=== PATIENT | male | born 1995 | race Caucasian/White ===

== ENCOUNTER 2017-04-15 16:42 | Emergency (ER) | payer BC ==
[~2017-04-15] VITALS: Ht 170.2 cm; Wt 81.0 kg
[2017-04-15 16:46] VITALS: TEMP 37.3; Ht 170.2 cm; Wt 81.0 kg
[2017-04-15] MEDS ORDERED: KETOROLAC TROMETHAMINE 30 MG/ML VIAL IV STA (17:02)
[2017-04-15] MEDS ORDERED: ONDANSETRON INJ 2 MG/ML 2 ML VIAL IV STA (17:02)
[2017-04-15] MEDS ORDERED: SODIUM CHLORIDE 0.9% 1000ML 1,000 ML IV STA (17:02)
[2017-04-15] MEDS ORDERED: SODIUM CHLORIDE 0.9% 1000ML 1,000 ML IV ONE (17:02)
[2017-04-15] MEDS ORDERED: BISM262T3 PO (17:12)
[2017-04-15] MEDS ORDERED: LISD40CA PO (17:12)
[2017-04-15 17:27] LABS: COMPLETE YES; HEMATOCRIT 42.8 % (42-52); IG% 0.2 %; LYMPH % 2.6 %; LYMPH ABS # 0.26 K/uL (1.2-3.4); MEAN CELL VOLUME 84.9 fL (80-100); MEAN CORPUSCULAR HEMOGLOBIN 28.8 pg (25-34); MEAN CORPUSCULAR HGB CONC 33.9 g/dl (32-36); MEAN PLATELET VOLUME 9.1 fL (7.4-10.4); MONO % 9.2 %; PLATELET COUNT 191 K/uL (130-400); RED BLOOD COUNT 5.04 M/uL (4.7-6.1)
[2017-04-15 17:54] LABS: CALCIUM 9.3 mg/dl (8.5-10.1); POTASSIUM 3.4 mmol/L (3.5-5.1)
[2017-04-15 18:16] LABS: URINE APPEARANCE CLEAR (CLEAR); URINE BILIRUBIN NEG (NEG); URINE COLOR YELLOW; URINE NITRITE NEG (NEG); URINE PH 7.5 (4.5-7.5); URINE SPECIFIC GRAVITY 1.013 (1.000-1.030); UROBILINOGEN NEG (NEG)
[2017-04-15 18:22] LABS: MANUAL MICROSCOPIC REQUIRED? NO; REVIEW REQ? NO
[2017-04-15] MEDS ORDERED: OPTIRAY 320 IV PRN (18:45)
--- NOTE | 2017-04-15 19:01 | DIAGNOSTIC IMAGING REPORT ---
ABD/PELVIS IV CONTRAST ONLY CLINICAL HISTORY: 21 years-old Male presenting with abdominal pain, clinical concern for appendicitis eval for appy. TECHNIQUE: Multidetector CT of the abdomen and pelvis was performed after the administration of intravenous contrast. IV contrast: 115 mL of Optiray 320. A dose lowering technique was used consistent with the principles of ALARA (as low as reasonably achievable). COMPARISON: None. CT DOSE (mGy.cm): The estimated cumulative dose is 338.96 mGy.cm. FINDINGS: Route Delivery Service Driver topogram: Unremarkable. Lung bases: Lung bases clear. No pericardial or pleural effusion. Liver: Normal morphology. No liver lesion. Patent hepatic vasculature. Biliary: No intrahepatic or extrahepatic biliary ductal dilatation. Normal gallbladder. Pancreas: Normal. Spleen: Normal. Adrenal glands: Normal. Kidneys and ureters: Normal. No hydronephrosis. Bladder: Normal. Pelvic organs: Prostate and seminal vesicles normal. Bowel: The appendix is nondilated but contains several appendicoliths. No periappendiceal fat stranding. Appendix also contains gas. No bowel obstruction. Small bowel wall thickening is apparent in the mid abdomen along an extended length of bowel. Several additional sites of small bowel wall thickening are suspected. Evaluation is limited due to lack of oral contrast. No significant perienteric fat stranding. Prominence of the vasa recta. Peritoneal cavity: Trace free fluid in the pelvis. Vasculature: Prominence of the vasa recta as mentioned above. Aorta and IVC patent. Lymph nodes: No enlarged lymph nodes in the abdomen or pelvis. Abdominal wall: Normal. Musculoskeletal: Normal. IMPRESSION: 1. No evidence of appendicitis. Presence of appendicoliths do increase the risk of appendiceal lumen obstruction. 2. Within limitations of lack of oral contrast, apparent small bowel wall thickening involving an extensive segment of ileum. This could be acute or chronic given the lack of perienteric inflammation to confirm acuity. The presence of prominent vasa recta suggests chronicity. This raises concern for inflammatory bowel disease among other etiologies of enteritis. Dedicated CT or MR enterography could be considered on a nonurgent basis. Electronically signed by: Akbar Boswell M.D. 04/15/2017 7:00 PM Dictated Date/Time: 04/15/2017 6:53 PM
[2017-04-15] MEDS ORDERED: ONDANSETRON HOME PACK 4MG OD TAB PO ONE (19:45)
--- NOTE | 2017-04-15 19:47 | EMERGENCY ROOM VISIT NOTE ---
History Report prepared by Chon: Guilherme Harman Under the Supervision of: Dr. Alton Rudolph M.D. First contact with patient: 16:49 Chief Complaint: VOMITING Stated Complaint: VOMITING,DIARRHEA,ABD PAIN History of Present Illness The patient is a 21 year old male who presents to the Emergency Room with complaints of waxing and waning upper abdominal pain beginning this morning. He also complains of diarrhea, headache, and vomiting. He states that he has had cold-like symptoms for the past few days. The patient states that he has had two episodes of vomiting today. He had four episodes of diarrhea today. He denies eating anything abnormal, or recent travel. The patient denies any testicular pain, sore throat, chest pain, SOB, urinary symptoms, or cough. He was seen at [facility] just prior to arrival and was referred to the ED for concern of possible appendicitis. He was found to have a fever of 101 degrees at [facility]. The patient denies any recent falls or trauma. He notes that his sister had appendicitis at the age of 23. Source of History: patient Onset: This morning Position: abdomen (upper) Timing: intermittent Associated Symptoms: + headache, + vomiting, + diarrhea, No sorethroat, No cough, No chest pain, No SOB, No urinary symptoms Note: The patient denies any testicular pain. Review of Systems See HPI for pertinent positives & negatives. A total of 10 systems reviewed and were otherwise negative. Past Medical & Surgical Medical Problems: (1) ADD (attention deficit disorder) Old medical records were reviewed. Nurse's notes were reviewed and I agree with. Family History No pertinent family history stated. Social History Smoking Status: Never Smoker Smokeless Tobacco Use: No Alcohol Use: occasionally Occupation Status: [employer] student Current/Historical Medications Scheduled Bismuth Subsalicylate (Pepto Bismol Chew Tab), 2 TAB PO PRN Lisdexamfetamine Dimesylate (Vyvanse), 40 MG PO DAILY Allergies Coded Allergies: No Known Allergies (Unverified , 04/15/17) Physical Exam Vital Signs Date Time Temp Pulse Resp B/P (MAP) Pulse Ox O2 Delivery O2 Flow Rate FiO2 04/15/17 19:54 87 16 109/73 100 04/15/17 19:01 94 16 119/74 99 Room Air 04/15/17 16:46 37.3 111 18 121/72 100 Room Air Physical Exam General: Well developed well nourished in no acute distress, breathing comfortably on room air. Normal speech HEENT: Normal cephalic atraumatic. Pupils are equal round and reactive to light. Extraocular movements are intact. Oropharynx is pink with moist mucous membranes. No swelling of the mouth lips or tongue. Neck: Supple with a midline trachea. No meningeal signs or stiffness, no JVD or bruits. No Stridor. Chest: Clear to auscultation bilaterally. No wheezes or rhonchi. No increased work of breathing. Heart: regular rate and rhythm. Abdomen: Soft, nondistended without rebound guarding or rigidity. Mildly tender in the epigastric tenderness. Minimal lower abdominal tenderness. Patient able to stand and jump up and down without pain. Extremities: No cyanosis clubbing or edema. No calf tenderness or assymetry Spine/Back. Non tender to palpation. No CVA tenderness Skin: Good turgor without rashes. Neurologic exam: Cranial nerves two through 12 are intact. Motor and sensation are intact and symmetrical throughout. Medical Decision & Procedures ER Provider Diagnostic Interpretation: CT results as stated below per my review and radiologist interpretation: ABD/PELVIS IV CONTRAST ONLY FINDINGS: Mechanical Intern topogram: Unremarkable. Lung bases: Lung bases clear. No pericardial or pleural effusion. Liver: Normal morphology. No liver lesion. Patent hepatic vasculature. Biliary: No intrahepatic or extrahepatic biliary ductal dilatation. Normal gallbladder. Pancreas: Normal. Spleen: Normal. Adrenal glands: Normal. Kidneys and ureters: Normal. No hydronephrosis. Bladder: Normal. Pelvic organs: Prostate and seminal vesicles normal. Bowel: The appendix is nondilated but contains several appendicoliths. No periappendiceal fat stranding. Appendix also contains gas. No bowel obstruction. Small bowel wall thickening is apparent in the mid abdomen along an extended length of bowel. Several additional sites of small bowel wall thickening are suspected. Evaluation is limited due to lack of oral contrast. No significant perienteric fat stranding. Prominence of the vasa recta. Peritoneal cavity: Trace free fluid in the pelvis. Vasculature: Prominence of the vasa recta as mentioned above. Aorta and IVC patent. Lymph nodes: No enlarged lymph nodes in the abdomen or pelvis. Abdominal wall: Normal. Musculoskeletal: Normal. IMPRESSION: 1. No evidence of appendicitis. Presence of appendicoliths do increase the risk of appendiceal lumen obstruction. 2. Within limitations of lack of oral contrast, apparent small bowel wall thickening involving an extensive segment of ileum. This could be acute or chronic given the lack of perienteric inflammation to confirm acuity. The presence of prominent vasa recta suggests chronicity. This raises concern for inflammatory bowel disease among other etiologies of enteritis. Dedicated CT or MR enterography could be considered on a nonurgent basis. Electronically signed by: Akbar Boswell M.D. 04/15/2017 7:00 PM Laboratory Results 04/15/17 17:12 Red Blood Count 5.04, Mean Corpuscular Volume 84.9, Mean Corpuscular Hemoglobin 28.8, Mean Corpuscular Hemoglobin Concent 33.9, Mean Platelet Volume 9.1, Neutrophils (%) (Auto) 88.0, Lymphocytes (%) (Auto) 2.6, Monocytes (%) (Auto) 9.2, Eosinophils (%) (Auto) 0.0, Basophils (%) (Auto) 0.0, Neutrophils # (Auto) 8.80, Lymphocytes # (Auto) 0.26, Monocytes # (Auto) 0.92, Eosinophils # (Auto) 0.00, Basophils # (Auto) 0.00 04/15/17 17:12 Test 04/15/17 17:12 04/15/17 18:05 White Blood Count 10.00 K/uL (4.8-10.8) Red Blood Count 5.04 M/uL (4.7-6.1) Hemoglobin 14.5 g/dL (14.0-18.0) Hematocrit 42.8 % (42-52) Mean Corpuscular Volume 84.9 fL (80-100) Mean Corpuscular Hemoglobin 28.8 pg (25-34) Mean Corpuscular Hemoglobin Concent 33.9 g/dl (32-36) Platelet Count 191 K/uL (130-400) Mean Platelet Volume 9.1 fL (7.4-10.4) Neutrophils (%) (Auto) 88.0 % Lymphocytes (%) (Auto) 2.6 % Monocytes (%) (Auto) 9.2 % Eosinophils (%) (Auto) 0.0 % Basophils (%) (Auto) 0.0 % Neutrophils # (Auto) 8.80 K/uL (1.4-6.5) Lymphocytes # (Auto) 0.26 K/uL (1.2-3.4) Monocytes # (Auto) 0.92 K/uL (0.11-0.59) Eosinophils # (Auto) 0.00 K/uL (0-0.5) Basophils # (Auto) 0.00 K/uL (0-0.2) RDW Standard Deviation 37.4 fL (36.4-46.3) RDW Coefficient of Variation 12.2 % (11.5-14.5) Immature Granulocyte % (Auto) 0.2 % Immature Granulocyte # (Auto) 0.02 K/uL (0.00-0.02) Anion Gap 6.0 mmol/L (3-11) Est Creatinine Clear Calc Drug Dose 121.1 ml/min Estimated GFR () 125.9 Estimated GFR (Non- 108.6 BUN/Creatinine Ratio 11.0 (10-20) Calcium Level 9.3 mg/dl (8.5-10.1) Total Bilirubin 0.8 mg/dl (0.2-1) Direct Bilirubin 0.2 mg/dl (0-0.2) Aspartate Amino Transf (AST/SGOT) 12 U/L (15-37) Alanine Aminotransferase (ALT/SGPT) 14 U/L (12-78) Alkaline Phosphatase 70 U/L (45-117) Total Protein 7.2 gm/dl (6.4-8.2) Albumin 4.1 gm/dl (3.4-5.0) Lipase 134 U/L (73-393) Urine Color YELLOW Urine Appearance CLEAR (CLEAR) Urine pH 7.5 (4.5-7.5) Urine Specific [place] 1.013 (1.000-1.030) Urine Protein NEG (NEG) Urine Glucose (UA) NEG (NEG) Urine Ketones NEG (NEG) Urine Occult Blood NEG (NEG) Urine Nitrite NEG (NEG) Urine Bilirubin NEG (NEG) Urine Urobilinogen NEG (NEG) Urine Leukocyte Esterase NEG (NEG) Laboratory studies as stated above per my review. Medications Administered Medications (Trade) Dose Ordered Sig/Sanam Route Start Time Stop Time Status Last Admin Dose Admin Sodium Chloride 1,000 ml @ 999 mls/hr Q1H1M STAT IV 04/15/17 17:02 04/15/17 18:02 DC 04/15/17 17:38 999 MLS/HR Sodium Chloride 1,000 ml @ 200 mls/hr Q5H ONCE IV 04/15/17 17:02 04/15/17 20:16 DC 04/15/17 17:38 200 MLS/HR Ondansetron HCl (ZOFRAN ODT 4MG Home Pack) 1 homepack UD ONCE PO 04/15/17 19:45 04/15/17 19:46 DC 04/15/17 19:50 1 HOMEPACK ED Course 165: Past medical records reviewed. The patient was evaluated in room B5, and a complete history and physical examination were performed. 1701: Ordered Zofran Inj 4 mg IV, Toradol Inj 30 mg IV, Sodium Chloride 1000 ml @ 200 mls/hr IV, Sodium Chloride 1000 ml @ 999 mls/hr IV 1803: I reassessed the patient. He feels better, but still has mild abdominal tenderness. 1934: Upon reevaluation, the patient is resting comfortably. I discussed the results and treatment plan with him. He verbalized agreement of the treatment plan. The patient was discharged home. 1944: Ordered Zofran Odt 4 mg homepack PO. Medical Decision Differentials include, but are not limited to; gastroenteritis, appendicitis, colitis, dehydration and electrolyte or metabolic abnormality. This patient comes in as described above. He was placed in room B5. He has been having abdominal pain mostly epigastric area associated with nausea vomiting diarrhea and a fever. He looks well on exam is nontoxic and non- lethargic. His abdomen is only mildly tender in midepigastric area. There is no significant lower quadrant tenderness or tenderness over McBurney's point. His symptoms are somewhat vague. IV access established hydrated normal saline bolus. He has no white count. He is not anemic. He has no acute electrolyte or metabolic abnormalities. Blood work does not suggest liver, gallbladder, or pancreas disease. Urinalysis does not suggest UTI. I did do a CAT scan to rule out appendicitis and he has no evidence of appendicitis. He does have enteritis. Most likely this is more of a infection/inflammatory. His abdomen is benign. I encouraged to follow-up with his regular doctor. He may need to follow-up with a specialist to have this rechecked particularly if he has further symptoms in the future but I would deftly follow-up with his primary care and be rechecked in the student health clinic. He was encouraged return if : increasing pain, worsening of symptoms, not tolerating fluids, any new problems or concerns. He was happy with plan and discharged to home. Impression Primary Impression: Enteritis Additional Impression: Nausea, vomiting and diarrhea Scribe Attestation The scribe's documentation has been prepared under my direction and personally reviewed by me in its entirety. I confirm that the note above accurately reflects all work, treatment, procedures, and medical decision making performed by me. Departure Information Dispostion Home / Self-Care Referrals No Doctor, Assigned (PCP) Forms HOME CARE DOCUMENTATION FORM, IMPORTANT VISIT INFORMATION Patient Instructions My [facility] Additional Instructions Rest. Mild diet. May use [id number] ibuprofen and/or Tylenol if needed for pain or fever Do not exceed the [id number] recommended dosages of acetaminophen/Tylenol and do not take with any other medications that contain acetaminophen/Tylenol Do not take more than 2 pills of Tylenol every 6 hours For nausea, May use Zofran 4 mg under the tongue every 6 hours if needed Return if increasing pain, worsening of symptoms, fever or chills, any new problems or concerns Follow-up with your doctor at or the student [facility] clinic this week for recheck. You may need further workup or evaluation of your intestines particularly if her symptoms persist. There is some questionable thickening on the CAT scan. Problem Qualifiers
[2017-04-15 19:54] VITALS: BP 109/73; PULSE 87; O2SAT 100
== END 2017-04-15 19:55 | disposition home or self-care (01) ==
LOC: C.EDB 16:44
DX: K52.9 Noninfective gastroenteritis and colitis, unspecified (principal); R11.2 Nausea with vomiting, unspecified; R19.7 Diarrhea, unspecified; F90.9 Attention-deficit hyperactivity disorder, unspecified type